=== PATIENT | female | born 1960 | race Asian ===

== ENCOUNTER → 2017-09-27 | Outpatient (CLI) | payer OTHER ==
[2017-09-27 10:27] LABS: BASOPHIL % 0.8 % (0-2); PLATELET COUNT 237 x10^3mcL (130-400); RED CELL DISTRIBUTION WIDTH 12.6 % (11.5-14.5)
[2017-09-27 11:12] LABS: ALBUMIN 3.4 g/dL (3.4-5.0); ALKALINE PHOSPHATASE 107 U/L (46-116); ALT/SGPT 67 U/L (14-59); AST/SGOT 36 U/L (15-37); BILIRUBIN TOTAL 0.3 mg/dL (0.20-1.00); CALCIUM 8.8 mg/dL (8.5-10.1); CARBON DIOXIDE 32.4 mmol/L (21-32); CHLORIDE SERUM 105 mmol/L (98-107); CREATININE SERUM 0.8 mg/dL (0.6-1.0); GFR1 > 60 mL/min; GLUCOSE SERUM 92 mg/dL (74-106); POTASSIUM SERUM 3.6 mmol/L (3.5-5.1); SODIUM SERUM 141 mmol/L (136-145); TOTAL PROTEIN, SERUM 7.8 g/dL (6.4-8.2); URIC ACID 6.5 mg/dL (2.6-6.0)
[2017-09-27 11:17] LABS: C REACTIVE PROTEIN < 0.2 mg/dL (<=0.9)
[2017-09-27 11:25] LABS: ERYTHROCYTE SED RATE 34 mm/hr (0-30)
== END | disposition home or self-care (01) ==
LOC: LB 09:39
PROC: BW40ZZZ Ultrasonography of Abdomen (ICD-10-PCS; principal; 2017-09-27)
DX: R94.5 Abnormal results of liver function studies (principal)
CPT/HCPCS: 86200; 86431